=== PATIENT | male | born 1970 | race American Indian/Alaskan Native ===

== ENCOUNTER 2016-12-10 12:42 | Emergency (ER) | payer SELFPAY ==
[2016-12-10 15:07] LABS: Basophils % (Auto) 0.2 % (0.0-1.8); Eosinophils % (Auto) 2.9 % (0.0-4.3); Hematocrit 40.8 % (35.5-45.6); Hemoglobin 13.1 gm/dl (11.8-15.2); Mean Corpuscular HGB Conc 32 % (32-34); Mean Corpuscular Volume 73 fl (84-94); Platelet Count 214 K/mm3 (140-440); Red Cell Distribution Width 15.6 % (13.2-15.2); White Blood Count 6.1 K/mm3 (4.5-11.0)
[2016-12-10 15:09] LABS: Mean Corpuscular Hemoglobin 23 pg (28-32)
[2016-12-10 15:33] LABS: Alanine Aminotransferase 38 units/L (7-56); Albumin 4.3 g/dL (3.9-5); Albumin/Globulin Ratio 1.2 %; Alkaline Phosphatase 80 units/L (35-129); Anion Gap 17 mmol/L; Bilirubin,Total 0.2 mg/dL (0.1-1.2); Blood Urea Nitrogen 13 mg/dL (9-20); Calcium 9.4 mg/dL (8.4-10.2); Carbon Dioxide 25 mmol/L (22-30); Chloride 96.6 mmol/L (98-107); Glucose 111 mg/dL (75-100); Lipase 36 units/L (13-60); Potassium 4.3 mmol/L (3.6-5.0); Sodium 134 mmol/L (137-145); Total Protein 7.9 g/dL (6.3-8.2)
[2016-12-10] MEDS ORDERED: PEPCID IV ONE (16:05)
[2016-12-10] MEDS ORDERED: NACL 0.9% 1000 ML 1,000 ML IV ONE (16:05)
[2016-12-10] MEDS ORDERED: BENTYL IM ONE (16:05)
[2016-12-10] MEDS ORDERED: NACL ONE (16:06)
--- NOTE | 2016-12-10 16:06 | Emergency Department Report ---
ED General Adult HPI - General Chief complaint: Abdominal Pain Stated complaint: ABD PAIN/LLQ Time Seen by Provider: 12/10/16 16:00 Source: patient, EMS (ems notes not available at time of chart dictation) Mode of arrival: Stretcher Limitations: No Limitations - History of Present Illness Initial comments: This is a 46-year-old male. He is previously unknown to me. He presents to the ER with abdominal pain and distention. Denies testicular pain. Denies vomiting. He is currently on a 1013. It is no irritative or obstructive urinary symptoms. Cannot describe exacerbating or relieving factors. Denies history of abdominal surgeries. -: Gradual Location: abdomen Quality: aching Consistency: intermittent Improves with: none Worsens with: none Associated Symptoms: denies: chest pain, cough, headaches - Related Data Home Medications Medication Instructions Recorded Confirmed Last Taken Paliperidone (Nf) [Invega] 01/02/14 01/02/14 Unknown Paliperidone Palmitate [Invega 01/02/14 01/02/14 Unknown Sustenna] Allergies Allergy/AdvReac Type Severity Reaction Status Date / Time chlorpromazine HCl Allergy Swelling Verified 01/02/14 23:43 [From Thorazine] haloperidol [From Haldol] Allergy Swelling Verified 01/02/14 23:43 haloperidol lactate Allergy Swelling Verified 01/02/14 23:43 [From Haldol] lorazepam [From Ativan] Allergy Swelling Verified 01/02/14 23:43 ED Review of Systems ROS: Stated complaint: ABD PAIN/LLQ Other details as noted in HPI Constitutional: denies: fever, weakness Eyes: denies: vision change ENT: denies: epistaxis Respiratory: denies: cough Cardiovascular: denies: syncope Gastrointestinal: abdominal pain Genitourinary: denies: urgency, dysuria, testicular pain Musculoskeletal: denies: back pain Neurological: denies: weakness Psychiatric: denies: homicidal thoughts, suicidal thoughts ED Past Medical Hx - Past Medical History Previous Medical History?: Yes Hx Hypertension: Yes Additional medical history: schizoaffective and psychotic disorder - Surgical History Past Surgical History?: Yes Additional Surgical History: has plate in hand - Social History Smoking Status: Never Smoker - Medications Home Medications: Home Medications Medication Instructions Recorded Confirmed Last Taken Type Paliperidone (Nf) [Invega] 01/02/14 01/02/14 Unknown History Paliperidone Palmitate [Invega 01/02/14 01/02/14 Unknown History Sustenna] ED Physical Exam - General Limitations: No Limitations General appearance: alert, in no apparent distress - Head Head exam: Present: atraumatic, normocephalic - Eye Eye exam: Present: normal appearance, EOMI. Absent: nystagmus - ENT ENT exam: Present: normal exam, normal orophraynx, mucous membranes moist, normal external ear exam - Neck Neck exam: Present: normal inspection, full ROM. Absent: tenderness, meningismus - Respiratory Respiratory exam: Present: normal lung sounds bilaterally. Absent: respiratory distress, wheezes, rales, rhonchi, stridor, chest wall tenderness - Cardiovascular Cardiovascular Exam: Present: regular rate, normal rhythm, normal heart sounds. Absent: bradycardia, tachycardia, irregular rhythm, systolic murmur, diastolic murmur, rubs, gallop - GI/Abdominal GI/Abdominal exam: Present: soft, distended, tenderness, normal bowel sounds, other (is mild diffuse abdominal tenderness. There is no rebound, guarding or peritoneal signs.). Absent: guarding, rebound, rigid, pulsatile mass - Rectal Rectal exam: Present: deferred - exam: Present: normal inspection. Absent: testicular tenderness External exam: Present: normal external exam, other (is no testicular tenderness. There is normal bilateral cremasteric reflex. There is no testicular swelling.) - Extremities Exam Extremities exam: Present: normal inspection, full ROM, normal capillary refill. Absent: tenderness, pedal edema, joint swelling, calf tenderness - Back Exam Back exam: Present: normal inspection, full ROM. Absent: tenderness, CVA tenderness (R), CVA tenderness (L), muscle spasm, paraspinal tenderness, vertebral tenderness - Neurological Exam Neurological exam: Present: alert, normal gait, other (Extraocular movements intact. Tongue midline. No facial droop. Facial sensation intact to light touch in the V1, V2, V3 distribution bilaterally. 5 and 5 strength in 4 extremities.. Sensation is intact to light touch in 4 extremities.). Absent: motor sensory deficit - Psychiatric Psychiatric exam: Present: flat affect. Absent: suicidal ideation - Skin Skin exam: Present: warm, dry, intact, normal color. Absent: rash ED Course Vital Signs 12/10/16 16:15 Temperature 98.7 F Pulse Rate 92 H Respiratory 18 Rate Blood Pressure 118/81 [Right] O2 Sat by Pulse 98 Oximetry - Reevaluation(s) Reevaluation #1: 12/10/16 17:51 differential diagnosis: Constipation, appendicitis, colitis, diverticulitis, urinary tract infection Assessment and plan: 46-year-old male with complaint of abdominal pain. He is afebrile with reassuring vital signs. Laboratory studies are unremarkable. He is able to tolerate liquid feeds. A CT scan abdomen and pelvis with IV contrast was negative for acute disease. Patient will be discharged back to psychiatric facility. ED Medical Decision Making - Lab Data Result diagrams: 12/10/16 14:51 12/10/16 14:51 Vital Signs 12/10/16 16:15 Temperature 98.7 F Pulse Rate 92 H Respiratory 18 Rate Blood Pressure 118/81 [Right] O2 Sat by Pulse 98 Oximetry Lab Results 12/10/16 12/10/16 12/10/16 Range/Units 14:51 14:51 16:40 WBC 6.1 (4.5-11.0) K/mm3 RBC 5.60 H (3.65-5.03) M/mm3 Hgb 13.1 (11.8-15.2) gm/dl Hct 40.8 (35.5-45.6) % MCV 73 L (84-94) fl MCH 23 L (28-32) pg MCHC 32 (32-34) % RDW 15.6 H (13.2-15.2) % Plt Count 214 (140-440) K/mm3 Lymph % (Auto) 15.8 (13.4-35.0) % [place] % (Auto) 8.2 H (0.0-7.3) % Eos % (Auto) 2.9 (0.0-4.3) % Baso % (Auto) 0.2 (0.0-1.8) % Lymph # 1.0 L (1.2-5.4) K/mm3 Free[place] # 0.5 (0.0-0.8) K/mm3 Eos # 0.2 (0.0-0.4) K/mm3 Baso # 0.0 (0.0-0.1) K/mm3 Seg Neutrophils % 72.9 H (40.0-70.0) % Seg Neutrophils # 4.5 (1.8-7.7) K/mm3 Sodium 134 L (137-145) mmol/L Potassium 4.3 (3.6-5.0) mmol/L Chloride 96.6 L (98-107) mmol/L Carbon Dioxide 25 (22-30) mmol/L Anion Gap 17 mmol/L BUN 13 (9-20) mg/dL Creatinine 1.0 (0.8-1.5) mg/dL Estimated GFR > 60 ml/min BUN/Creatinine Ratio 13.00 % Glucose 111 H (75-100) mg/dL Calcium 9.4 (8.4-10.2) mg/dL Total Bilirubin 0.2 (0.1-1.2) mg/dL AST 23 (5-40) units/L ALT 38 (7-56) units/L Alkaline Phosphatase 80 (35-129) units/L Total Protein 7.9 (6.3-8.2) g/dL Albumin 4.3 (3.9-5) g/dL Albumin/Globulin Ratio 1.2 % Lipase 36 (13-60) units/L Urine Color Yellow (Yellow) Urine Turbidity Clear (Clear) Urine pH 6.0 (5.0-7.0) Ur Specific Ki[place] 1.040 H (1.003-1.030) Urine Protein <15 mg/dl (Negative) mg/dL Urine Glucose (UA) Neg (Negative) mg/dL Urine Ketones Neg (Negative) mg/dL Urine Blood Neg (Negative) Urine Nitrite Neg (Negative) Urine Bilirubin Neg (Negative) Urine Urobilinogen < 2.0 (<2.0) mg/dL Ur Leukocyte Esterase Neg (Negative) Urine WBC (Auto) < 1.0 (0.0-6.0) /HPF Urine RBC (Auto) 1.0 (0.0-6.0) /HPF U Epithel Cells (Auto) < 1.0 (0-13.0) /HPF Urine Mucus Few /HPF - Radiology Data Radiology results: report reviewed, image reviewed CT scan of the abdomen and pelvis with IV contrast negative for acute disease. Critical care attestation.: If time is entered above; I have spent that time in minutes in the direct care of this critically ill patient, excluding procedure time. ED Disposition Clinical Impression: Abdominal pain Disposition: DC/TX PSY HOSP/PSY UNIT Is pt being admited?: No Does the pt Need Aspirin: No Condition: Stable Instructions: Abdominal Pain (ED) Additional Instructions: Continue current outpatient medications. Follow-up with her primary care doctor. Laboratory studies were unremarkable. CT scan of the abdomen and pelvis was unremarkable. Return to the ER right away with new pain, worsened pain, migration of pain, fevers or chills, intractable nausea or vomiting, inability to tolerate liquid feeds. Follow up with a primary care physician within the next 2-3 days. Referrals: PRIMARY MD SHERRILL [Primary Care Provider] - 3-5 Days PAREVEN BEARD MD [Staff Physician] - 3-5 Days
--- NOTE | 2016-12-10 16:40 | Cat Scan Report ---
CT of the abdomen and pelvis with IV and oral contrast. The liver, spleen, and pancreas are normal. The gallbladder is unremarkable. The kidneys are normal in size and configuration with no evidence of mass or hydronephrosis. There is no adenopathy within the retroperitoneum or pelvis. There are no pelvic masses or abnormal fluid collections. The appendix is normal. There is no free air. Impression: Normal study.
[2016-12-10 17:23] LABS: Bilirubin,Urine NEG (Negative); Blood,Urine NEG (Negative); Ketones,Urine NEG (Negative); Leukocyte Esterase,Urine NEG (Negative); Mucus,Urine FEW /HPF; Nitrite,Urine NEG (Negative); Protein,Urine <15 mg/dL mg/dL (Negative); Urobilinogen,Urine < 2.0 mg/dL (<2.0); WBC,Urine < 1.0 /HPF (0.0-6.0)
[2016-12-10 19:08] VITALS: BP 102/56
== END 2016-12-10 19:11 ==
LOC: ED 12:42
DX: R10.84 Generalized abdominal pain (principal); I10 Essential (primary) hypertension; F25.9 Schizoaffective disorder, unspecified; Z98.890 Other specified postprocedural states; Z88.8 Allergy status to other drugs, medicaments and biological substances
CPT/HCPCS: 36415; 74177; 80053; 81001; 83690; 85025; 96361; 96372; 96374; 99285; J0500; J7030; Q9967